=== PATIENT | female | born 1990 | race Caucasian/White ===

== ENCOUNTER 2018-06-30 00:45 | Emergency (ER) | payer MEDICAID ==
[~2018-06-30] VITALS: Ht 165.1 cm; Wt 59.0 kg
[2018-06-30 01:00] VITALS: BP_SYST 137
[2018-06-30 01:30] VITALS: BP_SYST 137
== END 2018-06-30 01:30 ==
LOC: SED 00:45
DX: Z34.81 Encounter for supervision of other normal pregnancy, first trimester (principal); Z3A.01 Less than 8 weeks gestation of pregnancy
CPT/HCPCS: 99283